=== PATIENT | female | born 1960 | race Caucasian/White ===

== ENCOUNTER → 2017-04-07 18:26 | Outpatient (CLI) | payer MEDICARE, SELFPAY | PROVIDERS: Family Provider Family Medicine; PCP Family Medicine; Visit Provider Family Medicine | DX: N39.0 Urinary tract infection, site not specified (principal) | CPT/HCPCS: 87086 ==

== ENCOUNTER → 2017-05-17 18:10 | Outpatient (CLI) | payer MEDICARE, SELFPAY | PROVIDERS: Family Provider Family Medicine; PCP Family Medicine; Visit Provider Family Medicine | DX: Z12.4 Encounter for screening for malignant neoplasm of cervix (principal) ==

== ENCOUNTER → 2017-05-24 16:48 | Outpatient (CLI) | payer MEDICARE, SELFPAY | PROVIDERS: Family Provider Family Medicine; PCP Family Medicine; Visit Provider Family Medicine | DX: N39.0 Urinary tract infection, site not specified (principal) | CPT/HCPCS: 87086; 87088 ==

== ENCOUNTER → 2018-06-22 13:25 | Outpatient (CLI) | payer MEDICARE, MEDICAID, SELFPAY ==
--- NOTE | 2018-06-22 13:28 | BI_ITS ---
MAMMOGRAPHY - BILATERAL SCREENING REASON FOR EXAM: Female, 57 years old. Routine annual screening examination. PERTINENT HISTORY: Sister with breast cancer. Aunt with breast cancer. Prior bilateral stereotactic breast biopsies. TECHNIQUE: Digital bilateral breast rafia (3D mammographic acquisition) in the CC and MLO projections. 2-D mediolateral oblique (MLO) and craniocaudad (CC) views of both breasts were obtained. CAD: Full Field Digital Mammography with Computer Added Detection was performed. COMPARISON: Comparison is made with prior study dated September 06, 2016 and April 25, 2014. FINDINGS: Breast Composition: The breasts are heterogeneously dense, which may obscure small masses. There are no dominant masses or suspicious calcifications. Stable appearance of the bilateral calcified nodules suggestive of bilateral fibroadenomas. No other significant abnormalities are identified. There has been no significant change since the prior study. BI/SCREENING MAMM (CAD), BILAT IMPRESSION: Stable bilateral screening mammogram. Yearly follow-up mammogram recommended. (A) ASSESSMENT CATEGORY: BIRADS Category 2: Benign. A letter regarding these results will be sent to the patient by the facility within 30 days. Approximately 10% of breast cancers are not detected by mammography. A normal mammogram should not delay biopsy of a clinically suspicious abnormality. [id number] Electronically Signed: Deondre Mario, at 14:59 EDT , Service support ,
== END ==
PROVIDERS: Family Provider Family Medicine; PCP Family Medicine; Referring Provider Family Medicine; Visit Provider Family Medicine
DX: Z12.31 Encounter for screening mammogram for malignant neoplasm of breast (principal)
CPT/HCPCS: 77063; 77067

== ENCOUNTER → 2018-08-09 17:18 | Outpatient (CLI) | payer MEDICARE, MEDICAID, SELFPAY | PROVIDERS: Family Provider Family Medicine; PCP Family Medicine; Visit Provider Nurse Practitioner Family | DX: N39.0 Urinary tract infection, site not specified (principal) | CPT/HCPCS: 87086; 87088; 87186 ==

== ENCOUNTER → 2019-10-17 17:38 | Outpatient (CLI) | payer MEDICARE, MEDICAID, SELFPAY ==
[2019-10-17 14:18] VITALS: BMI 61.8
[2019-10-23 03:18] LABS: HPV APTIMA, High Risk Negative (Negative)
== END ==
PROVIDERS: PCP Family Medicine; Referring Provider Nurse Practitioner Women's Health; Visit Provider Nurse Practitioner Women's Health
DX: Z12.4 Encounter for screening for malignant neoplasm of cervix (principal)
CPT/HCPCS: 87624; 88175; G0145

== ENCOUNTER → 2019-11-05 12:23 | Outpatient (CLI) | payer MEDICARE, SELFPAY ==
[2019-10-17 14:18] VITALS: BMI 61.8
--- NOTE | 2019-11-05 12:24 | US_ITS ---
STUDY: ULTRASOUND TRANSVAGINAL CLINICAL: Female, 58 years old. INTERMITTENT POST MENOPAUSAL SPOTTING TECHNIQUE: Transabdominal and Transvaginal COMPARISON: None. FINDINGS: Normal uterine size measuring 8.9 x 7.7 x 7.0 cm. 3 uterine fibroids are identified, measuring 4.7 x 4.4 x 4.2 cm, 3.7 x 3.8 x 2.8 cm, and 1.3 x 1.2 x 0.8 cm respectively. Normal endometrial thickness measuring 5.6 mm. Endometrium is hyperechoic. There are no endometrial masses, and there is no fluid in the endometrial cavity. There is a cervical nabothian cyst. Normal right ovary, measuring 3.6 x 1.9 x 1.6 cm. Right ovarian vascularity is normal. Left ovary was not visualized.. There is no free fluid in the pelvis. Polycystic ovary disease: No. US/Pelvic (Non ) IMPRESSION: Multiple uterine fibroids as detailed above. Cervical nabothian cyst. The right ovary appeared normal. The left ovary was not visualized. Electronically Signed: Kaiser Cotto MD at 20:57 EDT , Service support ,
--- NOTE | 2019-11-05 12:24 | US_ITS ---
STUDY: ULTRASOUND TRANSVAGINAL CLINICAL: Female, 58 years old. INTERMITTENT POST MENOPAUSAL SPOTTING TECHNIQUE: Transabdominal and Transvaginal COMPARISON: None. FINDINGS: Normal uterine size measuring 8.9 x 7.7 x 7.0 cm. 3 uterine fibroids are identified, measuring 4.7 x 4.4 x 4.2 cm, 3.7 x 3.8 x 2.8 cm, and 1.3 x 1.2 x 0.8 cm respectively. Normal endometrial thickness measuring 5.6 mm. Endometrium is hyperechoic. There are no endometrial masses, and there is no fluid in the endometrial cavity. There is a cervical nabothian cyst. Normal right ovary, measuring 3.6 x 1.9 x 1.6 cm. Right ovarian vascularity is normal. Left ovary was not visualized.. There is no free fluid in the pelvis. Polycystic ovary disease: No. US/Transvaginal Non- IMPRESSION: Multiple uterine fibroids as detailed above. Cervical nabothian cyst. The right ovary appeared normal. The left ovary was not visualized. Electronically Signed: Kaiser Cotto MD at 20:57 EDT , Service support ,
--- NOTE | 2019-11-05 12:24 | BI_ITS ---
MAMMOGRAPHY - BILATERAL SCREENING REASON FOR EXAM: Female, 58 years old. Routine annual screening examination. PERTINENT HISTORY: Sister with breast cancer. Aunt with breast cancer. History of bilateral stereotactic breast biopsies. TECHNIQUE: Digital bilateral breast jameel (3D mammographic acquisition) in the CC and MLO projections. 2-D mediolateral oblique (MLO) and craniocaudad (CC) views of both breasts were obtained. CAD: Full Field Digital Mammography with Computer Added Detection was performed. COMPARISON: Comparison is made with prior examination dated 06/22/2018 and 09/06/2016. FINDINGS: Breast Composition: The breasts are heterogeneously dense, which may obscure small masses. There are no dominant masses or suspicious calcifications. Stable densely calcified nodules in both breasts suggestive of bilateral fibroadenomas. Stable benign appearing bilateral axillary lymph notes. No other significant abnormalities are identified. There has been no significant change since the prior study. BI/SCREEN MAMM (CAD) W/JAMEEL BILAT IMPRESSION: Stable bilateral screening mammogram. Yearly follow-up mammogram recommended. (A) ASSESSMENT CATEGORY: BIRADS Category 2: Benign. A letter regarding these results will be sent to the patient by the facility within 30 days. Approximately 10% of breast cancers are not detected by mammography. A normal mammogram should not delay biopsy of a clinically suspicious abnormality. [id number] Electronically Signed: Deondre Mario, at 14:45 EDT , Service support ,
--- NOTE | 2019-11-05 12:49 | US_ITS ---
STUDY: ULTRASOUND TRANSVAGINAL CLINICAL: Female, 58 years old. INTERMITTENT POST MENOPAUSAL SPOTTING TECHNIQUE: Transabdominal and Transvaginal COMPARISON: None. FINDINGS: Normal uterine size measuring 8.9 x 7.7 x 7.0 cm. 3 uterine fibroids are identified, measuring 4.7 x 4.4 x 4.2 cm, 3.7 x 3.8 x 2.8 cm, and 1.3 x 1.2 x 0.8 cm respectively. Normal endometrial thickness measuring 5.6 mm. Endometrium is hyperechoic. There are no endometrial masses, and there is no fluid in the endometrial cavity. There is a cervical nabothian cyst. Normal right ovary, measuring 3.6 x 1.9 x 1.6 cm. Right ovarian vascularity is normal. Left ovary was not visualized.. There is no free fluid in the pelvis. Polycystic ovary disease: No. US/Transvaginal Non- IMPRESSION: Multiple uterine fibroids as detailed above. Cervical nabothian cyst. The right ovary appeared normal. The left ovary was not visualized. Electronically Signed: Kaiser Cotto MD at 20:57 EDT , Service support ,
== END ==
PROVIDERS: PCP Family Medicine; Referring Provider Nurse Practitioner Women's Health; Visit Provider Nurse Practitioner Women's Health
DX: Z12.31 Encounter for screening mammogram for malignant neoplasm of breast (principal); N95.0 Postmenopausal bleeding; Z80.3 Family history of malignant neoplasm of breast
CPT/HCPCS: 76830; 76856; 77063; 77067

== ENCOUNTER → 2019-12-10 10:45 | Outpatient (CLI) | payer MEDICARE, MEDICAID, SELFPAY ==
[2019-11-20 13:28] VITALS: BMI 61.8
[2019-12-03 13:37] LABS: Hemoglobin 13.6 g/dL (12.0-15.0); Mean Corp Hgb Conc 30.2 g/dL (32-36); Mean Corpuscular Hgb 28.3 pg (27.0-32.0); Mean Corpuscular Volume 93.6 fL (81-99); Mean Platelet Vol. 10.2 fl (6.2-12.0); Platelet Count 257 K/mm3 (150-450); RBC Distribution Width CV 13.8 % (11.6-14.6); RBC Distribution Width SD 47.8 fl (35.1-43.9); Red Blood Count 4.81 M/mm3 (4.2-5.4); White Blood Count 6.5 K/mm3 (4.4-11.0)
[2019-12-10 09:55] VITALS: BP 144/89; PULSE 59; RESP 16; TEMP 36.8; O2SAT 98; BMI 44.0
[2019-12-10] MEDS: Lactated Ringers 1,000 ML 100 ML IV (10:16)
--- NOTE | 2019-12-10 10:59 | PCM.PN.BLA ---
Progress Note Patient seen at bedside pre-op for hysteroscopy, D&C for postmenopausal bleeding. On discussion with patient, she now reports that she has never truly had vaginal bleeding, but rather bleeding only occurs when she experiences a Bartholin's gland cyst. Has never had postmenopausal bleeding without the presence of a cyst. Discussed with patient that with 5.6mm lining, sampling is not indicated unless she is experiencing bleeding. Surgery cancelled for today. Current cyst has already ruptured which would make it incredibly difficult to treat at this time. Discussed that I would recommend calling the office as soon as she begins to experience symptoms of a cyst again and we can see her in the office to discuss management. OR notified of surgery being cancelled for today. STROKE Vital Signs/Narrative: Vital Signs Temp Pulse Resp BP Pulse Ox 12/10/19 09:55 98.2 F 59 L 16 144/89 H 98
== END ==
LOC: AC 10:44 → PAT 01-08 14:45
PROVIDERS: Anesthesiology; PCP Family Medicine; Referring Provider Obstetrics & Gynecology; Visit Provider Obstetrics & Gynecology
DX: N95.0 Postmenopausal bleeding (principal); Z11.59 Encounter for screening for other viral diseases; Z53.09 Procedure and treatment not carried out because of other contraindication
CPT/HCPCS: 36415; 85027; 86850; 86900; 86901; 87635; C9803; J7120; U0003

== ENCOUNTER → 2020-02-25 16:16 | Outpatient (CLI) | payer MEDICARE, SELFPAY ==
[2019-12-10 09:55] VITALS: BMI 44.0
--- NOTE | 2020-02-25 16:25 | RAD_ITS ---
STUDY: X-RAY - LUMBOSACRAL SPINE REASON FOR EXAM: Female, 59 years old. Chronic lower back pain. TECHNIQUE: view(s) of the lumbosacral spine were obtained. COMPARISON: None FINDINGS: Normal lumbar lordosis. There is no substantial scoliosis. There is minimal anterolisthesis of L3 on L4. The alignment is otherwise preserved. There is no alteration of alignment with flexion or extension. There is demineralization of the lumbar vertebrae. There is multi-level degenerative disc disease with multi-level disc space narrowing. There is no evidence of acute fracture or loss of vertebral axial height. Normal bilateral sacral ala, sacroiliac joints, and visualized sacrum. Normal visualized soft tissue structures. RAD/L/S Spine Comp/w Bending Views IMPRESSION: Degenerative changes of the lumbar spine. Electronically Signed: Carlos Polo DO at 0:01 EST Tel [phone], Service support ,
== END ==
PROVIDERS: PCP Family Medicine; Referring Provider Anesthesiology Pain Medicine; Visit Provider Anesthesiology Pain Medicine
DX: M54.5 Low back pain (principal)
CPT/HCPCS: 72114; 72120

== ENCOUNTER → 2020-05-13 17:59 | Outpatient (CLI) | payer MEDICARE, SELFPAY ==
[2019-12-10 09:55] VITALS: BMI 44.0
--- NOTE | 2020-05-13 14:20 | CYSPIN_PTH ---
PATIENT: VIRGINIE ERNANDEZ LOC: [facility] U#:[id number] AGE/SX: 64/F ROOM: RE05/13/[address]: Dr. Cheryl Corado MD : 1960 BED: DIS: SPEC #: [id number] RECD: 05/14/20 07:49 STATUS: KELLEY REHallie #: [id number] TORIN: 05/13/20 14:[address]: Cheryl Corado DEPT: CYTOLOGY RECD BY: Ayleen Tilley ENTERED: 05/14/20 07:49 SP TYPE: CYSPIN FL OTHR DR: Dr. Chelsea Jorge MD Tissues: Urine Procedures: Pap Stain (control) Special Stain Group II Cytospin Fluid HEADER OPERATION: Not noted PRE-OP DIAGNOSIS: Gross hematuria TISSUE SUBMITTED: Urine for cytology DIAGNOSIS CYTOLOGY Urine for cytology (cytospin): Negative for malignant cells. Acute inflammation. See comment. NATHAN:to 05/14/2020 COMMENT The specimen predominantly consists of squamous epithelial cells. Clinical correlation and appropriate follow up are necessary. CYTOLOGY STUDY Slides are reviewed. CYTOLOGY GROSS Received is 60 ml of yellow clear fluid labeled with the patient's name and and designated per the requisition as urine. Submitted for cytology preparation. / to 05/13/20 TC:2 CPT: 37401
[2020-05-13 18:01] LABS: Cytology, Body Fluid / CSF SEE PATHOLOGY REPORT
== END ==
PROVIDERS: PCP Family Medicine; Visit Provider Urology
DX: R31.0 Gross hematuria (principal)
CPT/HCPCS: 88108; 88313

== ENCOUNTER → 2020-05-20 14:50 | Outpatient (CLI) | payer MEDICARE, MEDICAID, SELFPAY ==
[2019-12-10 09:55] VITALS: BMI 44.0
--- NOTE | 2020-05-20 14:56 | CT_ITS ---
STUDY: CT ABDOMEN AND PELVIS WITH AND WITHOUT CONTRAST REASON FOR EXAM: Female, 59 years old. Gross hematuria 1.5 weeks ago. Left hydronephrosis. Congenital renal deformity.. RADIATION DOSAGE (If Supplied By Facility): CTDIvol = ( 30.37 ) mGy, DLP = ( 4265.78 ) mGycm TECHNIQUE: Transaxial images were obtained from the dome of the diaphragm to the symphysis pubis without oral contrast. IV 100mL Isovue-300 was administered. Sagittal and coronal images were reconstructed. Individualized dose optimization techniques were used for this CT. COMPARISON: Abdominal ultrasound, 01/16/2012. Pelvic ultrasound, 11/05/2019. FINDINGS: The visualized lung bases are unremarkable. The visualized portions of the heart are within normal limits. Normal liver. Normal gallbladder and extrahepatic biliary system. Normal spleen. Normal pancreas. Normal bilateral adrenal glands. The right kidney is small in size with multiple areas of cortical narrowing consistent with scarring. There is associated cortical calcifications at the areas of scarring. There is no cyst or enhancing mass. There is no hydronephrosis. Normal right ureter appear The left kidney appears normal in size. There is minimal cortical loss in the lower pole.. There is no enhancing mass or renal calculi. There are parapelvic renal cysts without hydronephrosis. Normal left ureter. There is evidence of gastric bypass surgery. Normal small intestine. Normal colon. The appendix is visualized and appears normal. Normal abdominal aorta. Normal inferior vena cava. Normal retroperitoneum. Normal urinary bladder. Uterus is slightly irregular in contour consistent with fibroid uterus. There is no adnexal mass. There is no pelvic lymphadenopathy. No free air or free fluid is seen within the peritoneal cavity. Umbilical hernia of omental fat. The abdominal wall is otherwise grossly unremarkable. There are diffuse degenerative changes of the visualized lumbar spine. CT/CT Abd/Pelvis W/WO Contrast IMPRESSION: 1. Small scarred right kidney with cortical calcifications. There is no renal calculi are hydronephrosis. Normal right ureter. 2. Mild cortical loss lower pole of the left kidney with parapelvic cysts. There is no hydronephrosis or evidence of obstruction. 3. Fibroid uterus. 4. Umbilical hernia of omental fat. 5. Evidence of gastric bypass surgery. 6. Degenerative changes of the lumbar spine. Electronically Signed: Carlos Polo DO at 16:07 EST Tel [phone], Service support ,
[2020-05-20 15:15] LABS: CREATININE FINGERSTICK 1.2 mg/dL (0.55-1.02)
== END ==
PROVIDERS: PCP Family Medicine; Referring Provider Urology; Visit Provider Urology
DX: R31.0 Gross hematuria (principal); N13.30 Unspecified hydronephrosis
CPT/HCPCS: 74178; Q9967

== ENCOUNTER → 2020-06-02 16:16 | Outpatient (CLI) | payer MEDICARE, MEDICAID, SELFPAY ==
[2020-06-02 12:54] VITALS: BMI 48.5
--- NOTE | 2020-06-02 13:15 | EMB_PTH ---
PATIENT: VIRGINIE ERNANDEZ LOC: [facility] U#:[id number] AGE/SX: 64/F ROOM: RE06/02/[address]: YOSI Majano : 1960 BED: DIS: SPEC #: [id number] RECD: 06/02/20 16:13 STATUS: KELLEY IRAM #: [id number] TORIN: 06/02/20 13:[address]: Judi El NP DEPT: SURGICAL PATHOLOGY RECD BY: Janak Hawkins ENTERED: 06/03/20 08:41 SP TYPE: ENDOM BX/Bertha SIMON DR: Dr. Chelsea Jorge MD Tissues: Endometrium, NOS Procedures: Surgery Specimen Level IV HEADER OPERATION: Endometrial biopsy PRE-OP DIAGNOSIS: PMB TISSUE SUBMITTED: Endometrial biopsy MICROSCOPIC DIAGNOSIS Endometrial biopsy: Superficial fragments of proliferative endometrial tissue. SJ:to 06/04/2020 MICROSCOPIC DESCRIPTION Slides are reviewed. GROSS DESCRIPTION Received is one container labeled with the patient's name and not further designated. The specimen consists of multiple fragments of hemorrhagic mucoid tissue that in aggregate measure 2 x 2 x 0.1 cm. The specimen is totally submitted in one cassette. / AM:to 06/03/20 TC:4 CPT: 43175
== END ==
PROVIDERS: PCP Family Medicine; Visit Provider Nurse Practitioner Women's Health
DX: N95.0 Postmenopausal bleeding (principal)
CPT/HCPCS: 88305

== ENCOUNTER → 2020-07-29 15:05 | Outpatient (CLI) | payer MEDICARE, MEDICAID, SELFPAY ==
[2020-07-01 13:02] VITALS: BMI 49.0
[2020-07-29 17:49] LABS: Absolute Lymphocyte Count 3.02 X10^3/uL (0.83-4.51); Absolute Neutrophil Count 6.9 X10^3/uL (2.0-7.7); Basophil# 0.09 X10^3/uL; Basophil% 0.8 % (0-1); Eosinophil# 0.25 X10^3/uL; Eosinophils% 2.3 % (0-5); Hematocrit 49.2 % (37-47); Lymphocyte # 3.02 X10^3/ul (0.83-4.51); Lymphocyte % 27.4 % (19-41); Mean Corp Hgb Conc 30.5 g/dL (32-36); Mean Corpuscular Hgb 27.5 pg (27.0-32.0); Mean Corpuscular Volume 90.1 fL (81-99); Mean Platelet Vol. 10.3 fl (6.2-12.0); Monocyte# 0.71 X10^3/uL; Monocyte% 6.4 % (0-10); NRBC Flagged by Analyzer 0 % (0-5); Neutrophil # 6.94 X10^3/uL (2.7-7.7); Neutrophil % 62.8 % (47-70); Platelet Count 320 K/mm3 (150-450); RBC Distribution Width CV 14.4 % (11.6-14.6); RBC Distribution Width SD 47.3 fl (35.1-43.9); Red Blood Count 5.46 M/mm3 (4.2-5.4)
[2020-07-29 18:24] LABS: ALB/GLOB Ratio 0.8 RATIO (0.9-2.4); AST(SGOT) 18 U/L (15-37); Alanine Aminotransfer ALT/SGPT 27 U/L (13-56); Albumin, Serum 3.6 g/dL (3.2-5.0); Alkaline Phosphatase 99 U/L (45-117); Anion Gap 8 (5-15); BUN 29 mg/dL (7-18); BUN/Creat Ratio 28.7 RATIO (10-20); Calcium,Total 9.3 mg/dL (8.5-10.1); Chloride 107 mmol/L (98-107); Creatinine, Serum 1.01 mg/dL (0.55-1.02); EST Glomerular Filtration Rate 60 mL/min (>60); Est Glom Filt Rate - Afr Amer 72 mL/min (>60); Globulin 4.7 g/dL (2.2-4.2); Glucose 66 mg/dL (74-106); Potassium 3.7 mmol/L (3.5-5.1); Protein, Total 8.3 g/dL (6.4-8.2); Sodium Level 142 mmol/L (136-145)
== END ==
PROVIDERS: PCP Family Medicine; Referring Provider Family Medicine; Visit Provider Family Medicine
DX: Z01.818 Encounter for other preprocedural examination (principal)
CPT/HCPCS: 36415; 80053; 85025

== ENCOUNTER → 2020-08-14 15:07 | Outpatient (CLI) | payer MEDICARE, MEDICAID, SELFPAY ==
[2020-07-30 11:38] VITALS: BMI 49.0
--- NOTE | 2020-08-14 15:10 | RAD_ITS ---
HISTORY: ABDOMINAL PAIN EXAMINATION/TECHNIQUE: XR Abdomen 1 View: COMPARISON: Abdominal CT 05/20/20 FINDINGS: LINES AND TUBES: None. BOWEL GAS PATTERN: Non-obstructive. No bowel or stomach distention. FREE AIR: Not assessed on a single supine view. ORGANOMEGALY: Not seen. CALCIFICATIONS: No abnormal calcifications observed. LOWER CHEST: No acute pathology. BONES AND SOFT TISSUES: No acute pathology. RAD/Abdomen Single View IMPRESSION: Non-obstructive bowel gas pattern. at 1644 Reported and signed by: Kwesi Aguilar MD Electronically Signed: Kwesi Aguilar MD at 16:42 EDT Tel , Service support ,
== END ==
PROVIDERS: PCP Family Medicine; Referring Provider Registered Nurse; Visit Provider Registered Nurse
DX: R14.0 Abdominal distension (gaseous) (principal); R10.9 Unspecified abdominal pain
CPT/HCPCS: 74018

== ENCOUNTER 2020-08-18 14:45 | Observation (INO) | payer MEDICARE, MEDICAID, SELFPAY ==
[2020-07-01 13:02] VITALS: BMI 49.0
[2020-07-30 11:38] VITALS: BMI 49.0
--- NOTE | 2020-08-11 11:26 | EKG12_ITS ---
Test Reason : PRE-OP Blood Pressure : / mmHG Vent. Rate : 071 BPM Atrial Rate : 071 BPM P-R Int : 136 ms QRS Dur : 092 ms QT Int : 396 ms P-R-T Axes : 021 013 026 degrees QTc Int : 430 ms Normal sinus rhythm with sinus arrhythmia Low voltage QRS Nonspecific T wave abnormality Abnormal ECG Confirmed by ANEL CROSS, PAWEL ([id number]), editor managing newspaper [employer] ([id number]) on 08/12/2020 1:02:55 PM Referred By: Cheryl Corado Confirmed By:PAWEL TAM MD
[2020-08-11 12:43] LABS: Hematocrit 45.6 % (37-47); Hemoglobin 13.8 g/dL (12.0-15.0); Mean Corp Hgb Conc 30.3 g/dL (32-36); Mean Corpuscular Hgb 27.3 pg (27.0-32.0); Mean Corpuscular Volume 90.1 fL (81-99); Platelet Count 289 K/mm3 (150-450); RBC Distribution Width CV 14.8 % (11.6-14.6); RBC Distribution Width SD 49.1 fl (35.1-43.9); Red Blood Count 5.06 M/mm3 (4.2-5.4); White Blood Count 6.7 K/mm3 (4.4-11.0)
[2020-08-11 13:07] LABS: Magnesium 2.3 mg/dL (1.6-2.6)
[2020-08-18] VITALS (11 sets, daily range): BP systolic 115–150; BP diastolic 63–88; PULSE 59–96; RESP 16–20; TEMP 35.6–37.1; O2SAT 93–100; BMI 49.0
[2020-08-18] MEDS: dexAMETHasone 10 MG/ML Vial 8 MG IV (06:24)
[2020-08-18] MEDS: Lactated Ringers 1,000 ML 40 ML IV ×2 (06:26→06:27)
[2020-08-18] MEDS: Scopolamine 1mg/72hr Patch 1 PATCH TD (06:28)
[2020-08-18] MEDS: Acetaminophen 500 MG Tablet 1000 MG PO ×2 (06:28→18:48)
[2020-08-18] MEDS: Gabapentin 600 MG Tablet PO (06:28)
[2020-08-18 06:40] LABS: Bedside Glucose 103 mg/dL (70-110)
--- NOTE | 2020-08-18 07:16 | HP.PCM.OB_ITS ---
HPI - General HPI Narrative VIRGINIE ERNANDEZ, is a 59 F who presents for robotic assisted total laparoscopic hysterectomy, bilateral salpingectomy, possible bilateral salpingo-oophorectomy for persistent postmenopausal bleeding. PFSH PFS Medical History (Updated 08/11/20 @ 11:08 by Areli Betancur) Arthritis Back pain Fibromyalgia Former smoker Gastric reflux History of edema History of pain when walking History of stress test History of ulceration Injury of back Migraine headache Restless legs Shortness of breath on exertion spinal cyst removal Vaginal cysts Wears glasses Home Medications biotin 1 mg PO DAILY 11/15/13 [History Last Taken 12/09/19] ketotifen fumarate 5 ml OP PRN PRN 11/15/13 [History Last Taken 12/09/19] loratadine 10 mg PO DAILY 11/15/13 [History Last Taken 12/09/19] multivitamin with folic acid 1 tab PO DAILY 11/15/13 [History Last Taken 12/09/19] calcium polycarbophil 625 mg tablet 1,250 mg PO DAILY 10/17/19 [History Last Taken 12/09/19] docusate sodium 50 mg capsule 50 mg PO DAILY 10/17/19 [History Last Taken 12/09/19] duloxetine 30 mg capsule,delayed release sprinkle 30 mg PO QHS cap 10/17/19 [History Last Taken 12/09/19] ferrous sulfate 325 mg (65 mg iron) tablet 325 mg PO DAILY 10/17/19 [History Last Taken 12/09/19] lactobacillus combination no.8 3 billion cell capsule 3,000 mmu cells PO DAILY 10/17/19 [History Last Taken 12/09/19] mecobalamin (vitamin B12) 5,000 mcg lozenge 2,500 mcg PO Q7D 10/17/19 [History Last Taken 12/09/19] montelukast 10 mg tablet 10 mg PO DAILY 10/17/19 [History Last Taken 12/09/19] omeprazole 20 mg capsule,delayed release 20 mg PO DAILY 10/17/19 [History Last Taken 08/18/20 04:30 20 MG] polyethylene glycol 3350 17 gram/dose oral powder 17 gm PO DAILY 06/02/20 [History Last Taken Unknown] Allergy/AdvReac Type Severity Reaction Status Date / Time Sulfa (Sulfonamide Allergy Swelling Verified 08/11/20 10:55 Antibiotics) NSAIDS (Non-Steroidal AdvReac Nausea/Vom/ Verified 08/18/20 06:06 Anti-Inflamma Diarrhea seasonal Allergy Unknown Unknown Uncoded 07/01/20 13:03 TAPE AdvReac Rash Uncoded 07/01/20 13:03 Family History Father Diabetes Heart disease Sister Breast cancer Surgical History (Updated 08/11/20 @ 11:08 by Areli Betancur) History of bariatric surgery History of colonoscopy History of kidney surgery History of knee replacement History of partial thyroidectomy Hx of section Hx of colectomy Hx of endoscopy Status post panniculectomy Social History household members: other number of children: 2 current occupational status: unemployed history of recent travel: No sexually active: Yes Smoking Status: Former smoker alcohol intake: former substance use type: does not use what type of physical activity do you participate in: swimming frequency: 1-2 times per week seatbelt use: always do you feel safe at home: Yes additional social history: single History 3 Elective abortions Hx Para 2 Spontaneous abortions Hx # Term Pregnancies Ectopic pregnancies Hx # Pregnancies Multiple births # of living children Past Pregnancies Del. Date Name GA/Weeks Outcome Route Bth Weight Infant Gen Labor Lgth Anesthesia Del Locatn Provider FOB Unknown 1981 Sayda Unknown 1984 Tarah ROS Eyes Eyes: Reports systems reviewed and no addt'l complaints, except as documented ENT HEENT: Reports systems reviewed and no addt'l complaints, except as documented Cardiovascular Cardiovascular: Reports systems reviewed and no addt'l complaints, except as documented Respiratory/Chest Respiratory/Chest: Reports systems reviewed and no addt'l complaints, except as documented Gastrointestinal Gastrointestinal: Reports systems reviewed and no addt'l complaints, except as documented Genitourinary Genitourinary: Reports systems reviewed and no addt'l complaints, except as documented Musculoskeletal Musculoskeletal: Reports systems reviewed and no addt'l complaints, except as documented Integumentary Integumentary: Reports systems reviewed and no addt'l complaints, except as documented Neurologic Neurologic: Reports systems reviewed and no addt'l complaints, except as documented Psychiatric Psychiatric: Reports systems reviewed and no addt'l complaints, except as documented Endocrine Endocrinology: Reports systems reviewed and no addt'l complaints, except as documented Hematologic/Lymphatic Hematologic/Lymphatic: Reports systems reviewed and no addt'l complaints, except as documented Allergic/Immunologic Allergic/Immunologic: Reports systems reviewed and no addt'l complaints, except as documented Vital Signs Vital Signs Vital Signs: 08/18/20 06:08 Temperature 96.8 F L Temperature Source Temporal Pulse Rate 76 Respiratory Rate 16 Respiratory Pattern Normal Blood Pressure 115/69 Blood Pressure Mean 84 Blood Pressure Source Monitor Blood Pressure Position Semi-Fowlers Blood Pressure Location Right Arm Pulse Ox 98 Oxygen Delivery Method Room Air Weight Weight: 268 lb 4.841 oz Body Mass Index (BMI) 49.0 Physical Exam Const alert, oriented x3, no apparent distress, average body habitus, healthy appearing and well nourished HEENT normocephalic and moist oral mucous membranes Head and Scalp: atraumatic Eyes PERRL and EOMs intact bilaterally Neck full ROM Resp normal respiratory effort, no retractions and no use of accessory muscles Cardio regular rate and regular rhythm GI soft to palpation, non-tender and non-distended Extremity normal to inspection and full ROM Skin no rashes or lesions noted Neuro no focal motor deficits and no sensory deficits noted Psych mental status grossly normal, affect normal, speech normal and activity/motor behavior normal Labs Labs Labs: Blood Type A POSITIVE Antibody Screen NEGATIVE Hct 45.6 % (37-47) Hgb 13.8 g/dL (12.0-15.0) Hep Bs Antigen Negative (Negative) Miscellaneous Test Assessment & Plan (1) Postmenopausal bleeding: PLAN: Patient presents for preop visit for robotic assisted total laparoscopic hysterectomy, bilateral salpingectomy, possible bilateral salpingo- oophorectomy, cystoscopy for recurrent postmenopausal bleeding us showed uterus measuring 8.9 x 7.7 x 7.0 cm. with multiple fibroids the largest of which is 4.7 x 4.4 x 4.2 cm Risks and benefits of surgery were reviewed in depth with patient at her last visit. Patient denies questions or concerns today No changes in medical or surgical history since last visit. Med list up-to-date Patient received medical clearance from PCP. Consent form signed in the office today
--- NOTE | 2020-08-18 07:30 | HYST_PTH ---
PATIENT: VIRGINIE ERNANDEZ LOC: [facility] U#:[id number] AGE/SX: 59/F ROOM: [facility] RE08/18/[address]: Dr. Cheryl Corado MD : 1960 BED: 1 DIS: 08/19/2020 SPEC #: [id number] RECD: 08/18/20 12:52 STATUS: KELLEY WALDEN #: [id number] TORIN: 08/18/20 07:[address]: Cheryl Corado DEPT: SURGICAL PATHOLOGY RECD BY: Ayleen Tilley ENTERED: 08/19/20 08:31 SP TYPE: HYSTERECT OTHR DR: MD Dr. Jenna Perez MD Tissues: Uterus, NOS Procedures: Surgery Specimen Level V HEADER OPERATION: ERAS, robotic assisted total laparoscopic hysterectomy, bilateral salpingectomy PRE-OP DIAGNOSIS: Postmenopausal bleeding; uterine prolapse TISSUE SUBMITTED: Uterus, bilateral fallopian tubes, cervix MICROSCOPIC DIAGNOSIS Uterus, hysterectomy: Cervix ? nabothian cysts and mild chronic inflammation. Endometrium ? focal simple cystic hyperplasia without atypia. Myometrium ? leiomyomas and focal adenomyosis. One fallopian tube ? no pathologic change. Second fallopian tube ? hydrosalpinx and benign paratubal cyst. AM:to 08/20/2020 MICROSCOPIC DESCRIPTION Slides are reviewed. GROSS DESCRIPTION Received in fixative is one container labeled with the patient's name and designated uterus, cervix, bilateral fallopian tubes. The specimen consists of a hysterectomy specimen consisting of uterus, cervix and detached bilateral fallopian tubes. The uterus with cervix weighs 216 gm and measures 10 x 9 x 7 cm. A subserosal nodule is noted on the anterior surface. The serosal surface is hobbs, glistening. The ectocervical mucosa is unremarkable. The external os is oval and patulous in contour. The endocervical canal measures 3.5 cm in length and the endocervical mucosa is hobbs, glistening and unremarkable. The triangular endometrial cavity measures 5.5 cm in length and 3 cm in width. Sections of the uterine wall reveal multiple intramural and subserosal nodular masses. The largest mass measures 4.5 cm in diameter. Sections of these masses reveal hobbs whorled cut surfaces without areas of hemorrhage, necrosis or cystic degeneration. The uninvolved uterine wall measures up to 3 cm in thickness. Also present in the container are detached bilateral fallopian tubes measuring 4 cm in length and 0.8 cm in diameter and 6 cm in length and 0.6 cm in diameter. The fimbrial end is identified. Sections reveal unremarkable cut surfaces. Sections of one of the fallopian tubes reveal focally dilated lumen filled with mucoid material. Director Microbiology sections are submitted in 12 cassettes as follows: 1 - anterior cervix, 2??posterior cervix, 3 & 4 - anterior uterine wall, 5 & 6 - posterior uterine wall, 7 - largest nodular mass, 8??second largest nodular mass, 9 - smaller nodular mass, 10 - one fallopian tube, 11 & 12 - second fallopian tube, entirely submitted (fallopian tube with dilated lumen). / NATHAN:to 08/19/20 TC:1 CPT: 18813
--- NOTE | 2020-08-18 08:06 | HP.PCM_ITS ---
HPI - General HPI Narrative VIRGINIE ERNANDEZ, is a 59 F who presents for hysterectomy and repair of rectocele and uterine prolapse. She has undergone testing with urodynamics, office cystoscopy and informed consent was obtained. [facility] Medical History (Updated 08/18/20 @ 08:[address] Cheryl Corado MD) Arthritis Back pain Fibromyalgia Former smoker Gastric reflux History of edema History of pain when walking History of stress test History of ulceration Injury of back Migraine headache Rectocele Restless legs Shortness of breath on exertion spinal cyst removal Uterine prolapse Vaginal cysts Wears glasses Home Medications biotin 1 mg PO DAILY 11/15/13 [History Last Taken 12/09/19] ketotifen fumarate 5 ml OP PRN PRN 11/15/13 [History Last Taken 12/09/19] loratadine 10 mg PO DAILY 11/15/13 [History Last Taken 12/09/19] multivitamin with folic acid 1 tab PO DAILY 11/15/13 [History Last Taken 12/09/19] calcium polycarbophil 625 mg tablet 1,250 mg PO DAILY 10/17/19 [History Last Taken 12/09/19] docusate sodium 50 mg capsule 50 mg PO DAILY 10/17/19 [History Last Taken 12/09/19] duloxetine 30 mg capsule,delayed release sprinkle 30 mg PO QHS cap 10/17/19 [History Last Taken 12/09/19] ferrous sulfate 325 mg (65 mg iron) tablet 325 mg PO DAILY 10/17/19 [History Last Taken 12/09/19] lactobacillus combination no.8 3 billion cell capsule 3,000 mmu cells PO DAILY 10/17/19 [History Last Taken 12/09/19] mecobalamin (vitamin B12) 5,000 mcg lozenge 2,500 mcg PO Q7D 10/17/19 [History Last Taken 12/09/19] montelukast 10 mg tablet 10 mg PO DAILY 10/17/19 [History Last Taken 12/09/19] omeprazole 20 mg capsule,delayed release 20 mg PO DAILY 10/17/19 [History Last Taken 08/18/20 04:30 20 MG] polyethylene glycol 3350 17 gram/dose oral powder 17 gm PO DAILY 06/02/20 [History Last Taken Unknown] Allergy/AdvReac Type Severity Reaction Status Date / Time Sulfa (Sulfonamide Allergy Swelling Verified 08/11/20 10:55 Antibiotics) NSAIDS (Non-Steroidal AdvReac Nausea/Vom/ Verified 08/18/20 06:06 Anti-Inflamma Diarrhea seasonal Allergy Unknown Unknown Uncoded 07/01/20 13:03 TAPE AdvReac Rash Uncoded 07/01/20 13:03 Family History Father Diabetes Heart disease Sister Breast cancer Surgical History History of bariatric surgery History of colonoscopy History of kidney surgery History of knee replacement History of partial thyroidectomy Hx of section Hx of colectomy Hx of endoscopy Status post panniculectomy Social History household members: other number of children: 2 current occupational status: unemployed history of recent travel: No sexually active: Yes Smoking Status: Former smoker alcohol intake: former substance use type: does not use what type of physical activity do you participate in: swimming frequency: 1-2 times per week seatbelt use: always do you feel safe at home: Yes additional social history: single ROS Constitutional Constitutional: Reports systems reviewed and no addt'l complaints, except as documented Eyes Eyes: Reports none ENT HEENT: Reports none Cardiovascular Cardiovascular: Denies abdominal pain, chest pain, irregular heart rhythm or numbness in extremities Respiratory/Chest Respiratory/Chest: Denies cough, dyspnea or inability to speak Gastrointestinal Gastrointestinal: Reports other Details: difficulty evacuating rectum due to prolapse ; Denies abdominal pain, anorexia or change in bowel habits Genitourinary Genitourinary: Reports urinary incontinence; Denies burning urination or hematuria Musculoskeletal Musculoskeletal: Reports systems reviewed and no addt'l complaints, except as documented Integumentary Integumentary: Reports systems reviewed and no addt'l complaints, except as documented Neurologic Neurologic: Reports systems reviewed and no addt'l complaints, except as documented Psychiatric Psychiatric: Reports systems reviewed and no addt'l complaints, except as documented Vital Signs Vital Signs Vital Signs: 08/18/20 06:08 Temperature 96.8 F L Temperature Source Temporal Pulse Rate 76 Respiratory Rate 16 Respiratory Pattern Normal Blood Pressure 115/69 Blood Pressure Mean 84 Blood Pressure Source Monitor Blood Pressure Position Semi-Fowlers Blood Pressure Location Right Arm Pulse Ox 98 Oxygen Delivery Method Room Air Weight Weight: 121.7 kg Body Mass Index (BMI) 49.0 Physical Exam Const alert, oriented x3 and no apparent distress General Appearance: cooperative, comfortable, well kempt and well developed HEENT normocephalic, head/scalp atraumatic, hearing grossly normal bilaterally and external ears normal Nose: external nose normal Mouth: lips normal Eyes conjunctivae normal and no scleral icterus General Eye: normal appearance of both eyes Neck supple General: trachea midline Lymph Lymphatic: no lymphedema noted Chest inspection of chest normal Chest: symmetrical chest wall rise Resp normal respiratory effort, normal air movement, no retractions and no use of accessory muscles Effort and Inspection: able to speak in complete sentences and symmetric chest movement Cardio regular rate and regular rhythm GI soft to palpation, non-tender and non-distended no CVA tenderness and external exam normal External Female Exam: normal appearance of the urethra Back/Spine no CVA tenderness Extremity General Extremity: normal exam except as noted Skin no rashes or lesions noted, no wounds, skin turgor normal, no jaundice, no petechiae and no mottling Neuro oriented x3, CN's II-XII intact bilaterally and moves all extremities Psych mental status grossly normal, thought process normal, cooperative, affect normal and speech normal Results Lab / Micro Data Result Diagrams: 08/11/20 11:52 Labs: Laboratory Results - last 24 hr 08/18/20 06:15 POC Glucose 103 Assessment & Plan Assessment/Plan (1) Rectocele: PLAN: Proceed with posterior repair, possible dermis with bilateral sacrospinous ligament fixation, cystoscopy. Informed consent obtained. (2) Uterine prolapse: Procedure Criteria Type of Procedure Procedure Type: Elective Elective Risks - COVID COVID Risk Discussion: The surgeon/proceduralist and patient have discussed in detail the risk of exposure to and/or potential harm posed by the COVID-19 virus with having a surgery/procedure at this time versus the risk of delaying the surgery/procedure. It is not possible to know either the risk of delaying the surgery or procedure or chance of getting an infection with perfect accuracy, but a joint decision was made between the patient and the surgeon/proceduralist to proceed at this time with the scheduled surgery/procedure as indicated on the consent form.
--- NOTE | 2020-08-18 08:14 | PCM.OPRPT ---
Problems Associated Problem List Diagnoses (1) Uterine prolapse: (2) Rectocele: Report of Operation Date of Procedure: 08/18/20 Pre-Operative Diagnosis: Rectocele, mild uterine prolapse Post-Operative Diagnosis: Same Surgery/Procedure Performed:: Posterior repair with Dermis, bilateral sacrospinous ligament fixation, cystoscopy with bilateral ureteral catheterization Surgeon: Cheryl Corado Type of Anesthesia: General Estimated Blood Loss (mL): 50cc Description of Procedure: The patient is a 59-year-old female with pelvic organ prolapse and abnormal uterine bleeding. She presents for definitive surgical intervention with combination hysterectomy and prolapse repair. Informed consent was obtained. Patient was taken to the operating room and placed on the operating table. Anesthesia monitored the head, neck, airway, IV access and vital signs throughout the case. Once anesthesia was appropriately administered the patient was placed into dorsal lithotomy position was prepped and draped in usual sterile fashion. A Villela catheter was inserted to straight drain and the bladder was emptied. Dr. Forde proceeded with her portion of the procedure and closure of the vaginal cuff. At this time the case was turned to over to or. With posterior vaginal wall was isolated and injected submucosally with vasopressin for hydrostatic dissection and hemostatic control. A midline incision was made and sharp and blunt dissection was performed bilaterally, until the ischial spine was palpable and the sacrospinous ligaments were freed from surrounding tissue. Using the Capio device, a Monodek suture was then passed through the ligament bilaterally. The sutures were then passed through the dermis and then out to the apex of the vagina. A 2-0 Vicryl was used to suture the midline dermis to the apex vaginal mucosa. The sutures were then all tied down. The dermis was trimmed to length and width, and was tacked to the white line bilaterally and to the tissue just proximal to the perineal body in the midline. At this time the perineal body was brought together with interrupted 2-0 Vicryl sutures. The midline vaginal mucosal incision was then closed with running interlocking 2-0 Vicryl. The Villela catheter was then removed and the cystoscope was inserted through the urethra under direct visualization into the urinary bladder. The bladder mucosa in its entirety was visualized and found to be without evidence of injury, foreign body, mucosal or ulceration. Bilateral ureteral jets were observed. The cystoscope was removed and the Villela catheter was replaced. The patient's vagina was then packed with vaginal packing and estrogen cream. She was awakened and taken to the recovery room in good condition. Complications none Admit VTE Documentation VTE Present on Admission: Yes VTE Mechan Device Prophylaxis: SCD's VTE Pharm Prophylaxis ordered?: Yes
--- NOTE | 2020-08-18 08:18 | PCM.DC ---
Discharge Instructions Diet Discharge Diet: No restrictions Activity Discharge Activity: May Shower and - (No strenuous activity, no exercise, no vacuuming, no intercourse, no driving for 2 weeks) May resume sexual activity in: 8 weeks Lifting Restrictions: No lifting over 5 pounds for 8 weeks Dressing / Incision Call your doctor if your incision/area has: Continuous Slow Oozing, Sudden Increased Bleeding, Increased Pain/ Swelling and Foul Smelling Discharge Call your doctor if you observe: Fever of 101 or Higher, Inability to urinate, Inability to have a bowel movement, Calf discomfort and Uncontrolled pain Follow Up Care Please Follow Up With: Cheryl Corado MD Test Results: Test results from this visit will be discussed in further detail at your follow-up appointment, if applicable. Discharge Plan Admission Attending Provider: Cheryl Corado Primary Care Provider: Chelsea Jorge Consulting Providers: Jenna Forde Discharge Orders/Prescriptions Prescriptions: No Action omeprazole 20 mg capsule,delayed release(DR/EC) 20 mg PO DAILY RF: 0 duloxetine 30 mg capsule, delayed rel sprinkle 30 mg PO QHS RF: 0 montelukast 10 mg tablet 10 mg PO DAILY RF: 0 ferrous sulfate [iron] 325 mg (65 mg iron) tablet 325 mg PO DAILY RF: 0 mecobalamin (vitamin B12) 5,000 mcg lozenge 2,500 mcg PO Q7D RF: 0 Stool Softener 50 mg capsule 50 mg PO DAILY RF: 0 Adult Probiotic 3 billion cell capsule 3,000 mmu cells PO DAILY RF: 0 calcium polycarbophil [Fiber-Tabs] 625 mg tablet 1,250 mg PO DAILY RF: 0 polyethylene glycol 3350 [Miralax] 17 gram/dose powder 17 gm PO DAILY RF: 0 ketotifen fumarate 5 ML drops 5 ml OP PRN PRN (Reason: Allergies) RF: 0 loratadine 10 MG tablet 10 mg PO DAILY RF: 0 multivitamin with folic acid 1 TABLET tablet 1 tab PO DAILY RF: 0 biotin 1 MG capsule 1 mg PO DAILY RF: 0 Referrals / Follow Up: Chelsea Jorge MD [Primary Care Provider] -
[2020-08-18] MEDS: Ropivacaine 0.5% 30 ML Vial (08:30)
[2020-08-18] MEDS: Lubricating Jelly 60 GM Tube 30 GM TOPICAL (10:00)
[2020-08-18] MEDS: Lidocaine 1% /Epi 1:100 (20ml) 20 ML Vial (10:30)
--- NOTE | 2020-08-18 10:53 | OP.PCM_ITS ---
Problems Associated Problem List Diagnoses (1) Postmenopausal bleeding: Report of Operation Date of Procedure: 08/18/20 Pre-Operative Diagnosis: Persistent postmenopausal bleeding Post-Operative Diagnosis: Same Surgery/Procedure Performed:: Robotic assisted total laparoscopic hysterectomy, bilateral salpingectomy Description of Surgical Findings:: Enlarged fibroid uterus. Adhesive disease along the bladder flap. Normal appearing tubes and ovaries bilaterally. insurance office supervisor: Mary Cantu Type of Anesthesia: General Special Medications: Ancef 2 g Specimen's removed: Uterus, cervix, bilateral fallopian tubes Estimated Blood Loss (mL): 100 Description of Procedure: The patient was taken to the operating room where general anesthesia was obtained without difficulty. She was prepped and draped in the dorsolithotomy position with yellowfin stirrups. Weighted speculum was placed in the posterior aspect of the vagina and the anterior lip of the cervix was grasped with a single-tooth tenaculum. The cervix was sequentially dilated in order to accommodate a Aventicular uterine manipulator. Gloves were changed and attention was directed to the abdominal cavity. A 5 mm incision was made in the left upper quadrant and the varies needle was inserted without difficulty. The abdomen was insufflated. The Veress needle was removed and a 5 mm Optiview port was placed under direct visualization. Intra-abdominal placement was confirmed. 8 mm incisions were made in the right and left lower quadrants and approximately 2 fingerbreadths above the umbilicus and robotic ports were placed. A 12 mm accessory port was placed in the right upper quadrant. Findings were as above. The patient was placed in steep Trendelenburg positioning and the bowel was displaced superiorly. The da Lizet robot was subsequently docked without any complications.the bilateral fallopian tubes were elevated and grasped. The mesosalpinx was cauterized and transected bilaterally. The fallopian tubes were amputated at the cornual region and removed through the accessory port. The utero-ovarian ligaments were identified bilaterally.. These were cauterized and transected with the bipolar cautery and the EndoShears. This was followed by the round ligament, which was cauterized and transected in a similar fashion. The anterior leaf of the broad ligament was entered and the bladder flap dissected off of the lower uterine segment and cervix without complications. The uterine arteries bilaterally were skeletonized, cauterized, and transected. At this time, the uterus was blanched effectively demonstrating that the blood supply to the uterus had been terminated. The colpotomy cup was made with the monopolar scissors and carried around the entire cervicovaginal junction until the cervix and uterus were re leased from its moorings to the vagina. The cervix and uterus were removed from the abdominal cavity through the vagina. A pneumooccluder was then placed in the vagina. The cuff was then closed in a running fashion using oh V-Loc suture. The abdomen was copiously irrigated, cleared of all clots and debris, and the pedicles were examined and noted to be hemostatic. Occluder was then removed from the vagina. Lencho was applied over the operative field. Cystoscopy was deferred as this will be performed as part of Dr. Corado's portion of the case Gloves were changed and all the instruments were subsequently removed from the patient?s abdomen and vagina, and the 12-mm fascial defect was closed with a #0 Vicryl stitch, and the five skin incisions were closed with #4-0 Monocryl for excellent hemostasis and reapproximation. All counts were correct x2. Please see separate operative report for Dr. Corado's portion of the procedure. Complications None apparent Admit VTE Documentation VTE Present on Admission: No VTE Mechan Device Prophylaxis: SCD's VTE Pharm Prophylaxis ordered?: Yes Procedures Urinary/Genital [id number]: 58175 TLH+BS/O <250gr uterus (Robotic assisted)
--- NOTE | 2020-08-18 10:57 | PCM.DC ---
Discharge Instructions Diet Discharge Diet: No restrictions Activity May resume sexual activity in: 8 weeks Dressing / Incision Call your doctor if your incision/area has: Continuous Slow Oozing, Sudden Increased Bleeding, Increased Pain/ Swelling and Foul Smelling Discharge Call your doctor if you observe: Fever of 101 or Higher, Inability to urinate, Inability to have a bowel movement, Calf discomfort and Uncontrolled pain Remove Dressing in: 1 week Cleanse incision/area with: Soap & Water Follow Up Care Please Follow Up With: Cheryl Corado MD Test Results: Test results from this visit will be discussed in further detail at your follow-up appointment, if applicable. Discharge Plan Admission Attending Provider: Cheryl Corado Primary Care Provider: Chelsea Jorge Consulting Providers: Jenna Forde Patient Instructions: Laparoscopic Hysterectomy: Your Home Recovery Discharge Orders/Prescriptions Prescriptions: No Action omeprazole 20 mg capsule,delayed release(DR/EC) 20 mg PO DAILY RF: 0 duloxetine 30 mg capsule, delayed rel sprinkle 30 mg PO QHS RF: 0 montelukast 10 mg tablet 10 mg PO DAILY RF: 0 ferrous sulfate [iron] 325 mg (65 mg iron) tablet 325 mg PO DAILY RF: 0 mecobalamin (vitamin B12) 5,000 mcg lozenge 2,500 mcg PO Q7D RF: 0 Stool Softener 50 mg capsule 50 mg PO DAILY RF: 0 Adult Probiotic 3 billion cell capsule 3,000 mmu cells PO DAILY RF: 0 calcium polycarbophil [Fiber-Tabs] 625 mg tablet 1,250 mg PO DAILY RF: 0 polyethylene glycol 3350 [Miralax] 17 gram/dose powder 17 gm PO DAILY RF: 0 ketotifen fumarate 5 ML drops 5 ml OP PRN PRN (Reason: Allergies) RF: 0 loratadine 10 MG tablet 10 mg PO DAILY RF: 0 multivitamin with folic acid 1 TABLET tablet 1 tab PO DAILY RF: 0 biotin 1 MG capsule 1 mg PO DAILY RF: 0 Referrals / Follow Up: Chelsea Jorge MD [Primary Care Provider] -
[2020-08-18] MEDS: Estrogens,Conj. 1 Tube 1 DOSE (11:54)
[2020-08-18] MEDS: oxyCODONE 5 MG Tablet PO ×2 (14:55→20:51)
[2020-08-18] MEDS: DULoxetine Hcl 30 MG Capsule PO (22:40)
[2020-08-18] MEDS: Docusate Sodium 100 MG Capsule PO (22:40)
[2020-08-19] MEDS: Acetaminophen 500 MG Tablet 1000 MG PO ×4 (01:20→18:59)
[2020-08-19 02:27] VITALS: BP 109/60; PULSE 85; RESP 18; TEMP 36.8; O2SAT 92
[2020-08-19] MEDS: oxyCODONE 5 MG Tablet PO ×3 (02:32→17:45)
[2020-08-19 06:18] LABS: Hematocrit 41.5 % (37-47); Hemoglobin 12.5 g/dL (12.0-15.0); Mean Corp Hgb Conc 30.1 g/dL (32-36); Mean Corpuscular Hgb 27.5 pg (27.0-32.0); Mean Corpuscular Volume 91.2 fL (81-99); Mean Platelet Vol. 9.6 fl (6.2-12.0); Platelet Count 276 K/mm3 (150-450); RBC Distribution Width CV 14.6 % (11.6-14.6); Red Blood Count 4.55 M/mm3 (4.2-5.4); White Blood Count 15.5 K/mm3 (4.4-11.0)
[2020-08-19 07:16] VITALS: O2SAT 92
[2020-08-19 08:20] VITALS: BP 107/61; PULSE 64; RESP 18; TEMP 36.6; O2SAT 94
--- NOTE | 2020-08-19 08:30 | PCM.PN.OB ---
Subjective Subjective Patient seen and examined. Reports doing well. Reports was very sore last night, but pain doing better this morning. Vilella catheter just removed. Has not yet voided. Objective Data Objective Data Vital Signs: Vital Signs Temp Pulse Resp BP Pulse Ox 98.2 F 85 18 109/60 92 08/19/20 02:27 08/19/20 02:27 08/19/20 02:27 08/19/20 02:27 08/19/20 07:16 Oxygen Flow Rate (L/min) 6 Oxygen Delivery Method Room Air Weight: 268 lb 4.841 oz Body Mass Index (BMI) 49.0 Intake & Output: Intake and Output for Last 24 Hours 08/17/20 08/18/20 08/19/20 23:59 23:59 23:59 Intake Total 1942.5 / 2442.5 1700.00 / 1700.00 Output Total 1075 / 1625 1300 / 1300 Balance 867.5 / 817.5 400.00 / 400.00 Lab / Micro Data Result Diagrams: 08/19/20 06:10 Labs: Laboratory Results - last 24 hr 08/19/20 06:10 WBC 15.5 H RBC 4.55 Hgb 12.5 Hct 41.5 MCV 91.2 MCH 27.5 MCHC 30.1 L RDW Std Deviation 49.0 H RDW Coeff of Gali 14.6 Plt Count 276 MPV 9.6 Micro: Microbiology 08/11/20 11:30 Interface Orders SARS-CoV-2 Antigen (Rapid) - Final ROS Constitutional Constitutional: Denies fever(s) Cardiovascular Cardiovascular: Denies chest pain, dyspnea or lightheadedness Gastrointestinal Gastrointestinal: Reports abdominal pain; Denies constipation or diarrhea Neurologic Neurologic: Denies dizziness or headache(s) Physical Exam Const alert, oriented x3, no apparent distress, average body habitus, healthy appearing and well nourished HEENT normocephalic Head and Scalp: atraumatic Eyes PERRL and EOMs intact bilaterally Neck full ROM Lymph Lymphatic: no lymphadenopathy noted Resp normal respiratory effort, no retractions and no use of accessory muscles Cardio regular rate GI soft to palpation, non-tender and non-distended Inspection: incision intact and other (dressing in place) Extremity normal to inspection and no clubbing, cyanosis or edema Skin no rashes or lesions noted Neuro no focal motor deficits and no sensory deficits noted Psych mental status grossly normal, affect normal and speech normal Assessment & Plan (1) S/P hysterectomy: PLAN: Patient doing well. Vital signs stable. Postop hemoglobin stable. Incisions clean dry and intact with dressings in place Villela catheter removed this morning-awaiting spontaneous void Tolerating transitional diet Encouraged ambulation Anticipate discharge to home later today
[2020-08-19] MEDS: Polyethylene Glycol 3350 17 GM PACKET PO (09:38)
[2020-08-19] MEDS: Montelukast 10 MG Tablet PO (09:38)
[2020-08-19] MEDS: Loratadine 10 MG Tablet PO (09:38)
[2020-08-19] MEDS: Pantoprazole Sodium 20 MG Tablet PO (09:38)
[2020-08-19] MEDS: Docusate Sodium 100 MG Capsule PO (09:38)
[2020-08-19] MEDS: Enoxaparin 40 MG/0.4 ML Syringe SC (09:39)
[2020-08-19 14:20] VITALS: BP 106/53; PULSE 65; RESP 18; TEMP 36.6; O2SAT 96
--- NOTE | 2020-08-19 15:11 | NURSING ---
RNCM HERNANDEZ Note: This underwriter solicitation director went to patient bedside, introduced self and role. Explained and reviewed HERNANDEZ form with patient in regards to current treatment this hospital stay. Informed outpatient billing is determined by her insurance policy and continual review is conducted to determine any changes in condition that may warrant inpatient stay. Patient states understanding and denies any questions with HERNANDEZ form. Patient signed HERNANDEZ form and placed in patient hard chart. Patient was provided a copy. ONEL Adhikari
[2020-08-19 19:49] VITALS: BP 121/62; PULSE 72; RESP 18; TEMP 36.6; O2SAT 95
== END 2020-08-19 20:40 ==
LOC: SDC 14:55 → MS3 14:55
PROVIDERS: Anesthesiology; Admitting Provider Obstetrics & Gynecology; PCP Family Medicine; Referring Provider Urology; Visit Provider Urology
PROC: 0UT94ZZ Resection of Uterus, Percutaneous Endoscopic Approach (ICD-10-PCS; CPT 58571; principal; 2020-08-18 07:10)
PROC: (CPT 57260; 2020-08-18 07:10)
DX: N81.4 Uterovaginal prolapse, unspecified (principal); D25.9 Leiomyoma of uterus, unspecified; N70.11 Chronic salpingitis; N83.8 Other noninflammatory disorders of ovary, fallopian tube and broad ligament; N95.0 Postmenopausal bleeding; M79.7 Fibromyalgia; G25.81 Restless legs syndrome; K21.9 Gastro-esophageal reflux disease without esophagitis; M19.90 Unspecified osteoarthritis, unspecified site; R94.31 Abnormal electrocardiogram [ECG] [EKG]; Z87.891 Personal history of nicotine dependence; Z79.899 Other long term (current) drug therapy; Z98.84 Bariatric surgery status
CPT/HCPCS: 00940; 57250; 57282; 58571; S2900; 36415; 82962; 83735; 85027; 86850; 86900; 86901; 87426; 88307; 93005; 96372; 99218; C9803; J7120; C1758; G0378; G0379; J2405

== ENCOUNTER → 2020-10-01 11:03 | Outpatient (CLI) | payer MEDICARE, MEDICAID, SELFPAY ==
[2020-08-31 11:02] VITALS: BMI 48.4
== END ==
PROVIDERS: PCP Family Medicine; Referring Provider Family Medicine; Visit Provider Nurse Practitioner Family
DX: N39.0 Urinary tract infection, site not specified (principal)
CPT/HCPCS: 87077; 87086; 87088; 87186

== ENCOUNTER → 2020-11-03 16:28 | Outpatient (CLI) | payer MEDICARE, MEDICAID, SELFPAY ==
[2020-08-31 11:02] VITALS: BMI 48.4
--- NOTE | 2020-11-03 16:21 | BI_ITS ---
MAMMOGRAPHY - BILATERAL SCREENING REASON FOR EXAM: Female, 59 years old. Routine annual screening examination. PERTINENT HISTORY: Sister with breast cancer. Altered with breast cancer. Remote bilateral stereotactic breast biopsy. TECHNIQUE: Digital bilateral breast jameel (3D mammographic acquisition) in the CC and MLO projections. 2-D mediolateral oblique (MLO) and craniocaudad (CC) views of both breasts were obtained. CAD: Full Field Digital Mammography with Computer Added Detection was performed. COMPARISON: Comparison is made with prior examination of 11/05/2019 and 06/22/2018. FINDINGS: Breast Composition: The breasts are heterogeneously dense, which may obscure small masses. There are no dominant masses or suspicious calcifications. Stable densely calcified nodular densities in both breasts. Stable benign appearing bilateral axillary lymph nodes. No other significant abnormalities are identified. There has been no significant change since the prior study. BI/SCRN MAMM (CAD)W/JAMEEL BILAT IMPRESSION: Stable bilateral screening mammogram. Yearly follow-up mammogram recommended. (A) ASSESSMENT CATEGORY: BIRADS Category 2: Benign. A letter regarding these results will be sent to the patient by the facility within 30 days. Approximately 10% of breast cancers are not detected by mammography. A normal mammogram should not delay biopsy of a clinically suspicious abnormality. [id number] Electronically Signed: Deondre Mario MD at 8:35 EDT , Service support ,
== END ==
PROVIDERS: PCP Family Medicine; Referring Provider Family Medicine; Visit Provider Family Medicine
DX: Z12.31 Encounter for screening mammogram for malignant neoplasm of breast (principal)
CPT/HCPCS: 77063; 77067

== ENCOUNTER → 2020-11-20 16:34 | Outpatient (CLI) | payer MEDICARE, MEDICAID, SELFPAY | PROVIDERS: PCP Family Medicine; Referring Provider Family Medicine; Visit Provider Family Medicine | DX: R05 Cough (principal) | CPT/HCPCS: 87635; U0005; U0003 ==

== ENCOUNTER → 2020-12-18 16:52 | Outpatient (CLI) | payer MEDICARE, SELFPAY ==
--- NOTE | 2020-12-18 17:02 | RAD_ITS ---
STUDY: X-RAY - LEFT KNEE REASON FOR EXAM: Female, 60 years old. L KNEE PAIN TECHNIQUE: 4 view(s) of the knee. COMPARISON: None. FINDINGS: Normal visualized distal femur. Normal visualized proximal tibia and fibula. Normal proximal tibiofibular articulation. There is severe degenerative arthrosis of the medial femorotibial compartment with severe joint space narrowing. There is mild degenerative arthrosis of the lateral femorotibial compartment. There is severe degenerative arthrosis of the patellofemoral articulation. The soft tissue structures are unremarkable. RAD/Knee 4 or More Views IMPRESSION: Degenerative arthrosis. Electronically Signed: Annalee Shah MD at 5:37 EDT Tel , Service support ,
== END ==
PROVIDERS: PCP Family Medicine; Referring Provider Anesthesiology Pain Medicine; Visit Provider Anesthesiology Pain Medicine
DX: R35.0 Frequency of micturition (principal); M25.562 Pain in left knee
CPT/HCPCS: 73564; 87077; 87086; 87088; 87186

== ENCOUNTER 2021-03-15 13:45 | Outpatient (CLI) | payer MEDICARE, SELFPAY | END 2021-03-15 23:59 | disposition home or self-care (01) | LOC: LABSPEC 13:46 | PROVIDERS: PCP Family Medicine; Visit Provider Nurse Practitioner Family | DX: N39.0 Urinary tract infection, site not specified (principal) | CPT/HCPCS: 87077; 87086; 87088; 87186 ==